=== PATIENT | female | born 1985 ===

== ENCOUNTER 2020-07-19 20:55 | Emergency (ER) | payer MEDICARE, OTHER ==
[~2020-07-19] VITALS: Ht 167.6 cm; Wt 49.9 kg
[~2020-07-19 20:55] MED LIST: ADDERALL PO; ATIVAN PO; XANAX PO; ZYPREXA PO
[2020-07-19] MEDS ORDERED: IBUP-1954 PO (21:37)
[2020-07-19] MEDS ORDERED: TRAM50TA PO (21:37)
[2020-07-19 22:00] LABS: *URINE HCG, QUAL NEGATIVE (NEGATIVE)
--- NOTE | 2020-07-19 22:03 | NUR ---
MSE COMPLETED. PT D/C'D HOME ACI/RX X1 GIVEN. PT AMBULATED W/O DIFF/TOOK ALL BELONGINGS.
[2020-07-19 22:04] VITALS: BP 78/78
== END 2020-07-19 22:05 | disposition home or self-care (01) ==
LOC: ER 20:55
DX: B80 Enterobiasis (principal); F95.2 Tourette's disorder; F84.0 Autistic disorder
CPT/HCPCS: 84703; A4663